=== PATIENT | female | born 1960 | race Caucasian/White ===

== ENCOUNTER 2021-04-22 09:50 | Day surgery (SDC) | payer OTHER ==
[2021-04-17 11:26] VITALS: BMI 31.1
[2021-04-22 12:16] VITALS: BP 101/65; PULSE 69
[2021-04-22 12:25] VITALS: TEMP 98.5
== END 2021-04-22 12:30 | disposition home or self-care (01) ==
LOC: FASU-ENDO 09:50
PROVIDERS: ATTEND Internal Medicine Gastroenterology
PROC: 0DJD8ZZ Inspection of Lower Intestinal Tract, Via Natural or Artificial Opening Endoscopic (ICD-10-PCS; principal; 2021-04-22 11:21)
DX: Z12.11 Encounter for screening for malignant neoplasm of colon (principal); K64.1 Second degree hemorrhoids

== ENCOUNTER 2023-09-03 17:23 | Emergency (ER) | payer OTHER ==
[2023-09-03 17:37] VITALS: BP 123/86; PULSE 77; RESP 18; TEMP 98.1; BMI 26.6
[2023-09-03] MEDS ORDERED: AMOX TR/POT CLAV 875MG/125MG TABLETS (FP) PO ONE (18:01)
[2023-09-03] MEDS ORDERED: AMOX TR/POT CLAV 875MG/125MG TABLETS (FP) ONE (18:02)
== END 2023-09-03 18:15 | disposition home or self-care (01) ==
LOC: FER 17:23
DX: H92.02 Otalgia, left ear (principal); H66.92 Otitis media, unspecified, left ear; H93.8X2 Other specified disorders of left ear
CPT/HCPCS: 99283-25